=== PATIENT | male | born 1980 | race Caucasian/White ===

== ENCOUNTER 2017-10-27 00:24 | Emergency (ER) | payer MEDICAID ==
[~2017-10-27] VITALS: Ht 167.6 cm; Wt 75.1 kg
[2017-10-27] MEDS ORDERED: DIPHENHYDRAMINE 50MG/ML VIAL IV ONE (01:30)
[2017-10-27 02:18] LABS: CHLORIDE 105 mEq/L (98-107)
[2017-10-27 05:07] VITALS: BP 138/90
== END 2017-10-27 05:30 | disposition home or self-care (01) ==
LOC: ER 00:46
DX: R20.8 Other disturbances of skin sensation (principal); I10 Essential (primary) hypertension
CPT/HCPCS: 36415; 80048; 96374; 99284; J1200